=== PATIENT | male | born 1970 | race Caucasian/White ===

== ENCOUNTER 2017-08-24 16:54 | Emergency (ER) | payer MEDICAID, OTHER ==
[~2017-08-24] VITALS: Ht 180.3 cm; Wt 87.7 kg
[~2017-08-24 16:54] MED LIST: HYDR-3237 PO; OMEP20CA9 PO; SULF1TAB24 PO
[2017-08-24 17:03] VITALS: BP 127/85
[2017-08-24] MEDS ORDERED: HYDROcodone/APAP 5/325 TABLET ONE (17:41)
[2017-08-24] MEDS ORDERED: BUPIVACAINE 0.25% ONE (17:41)
[2017-08-24] MEDS ORDERED: BUPIVACAINE 0.25% INFIL ONE (18:00)
[2017-08-24] MEDS ORDERED: HYDROcodone/APAP 5/325 TABLET PO ONE (18:00)
[2017-08-24] MEDS ORDERED: LIDOCAINE 1%-EPI 1:100K, 20ML SQ ONE (18:00)
[2017-08-24] MEDS ORDERED: BACITRACIN ZINC OINT 500U/GM, 0.9 GM ONE (19:28)
[2017-08-24] MEDS ORDERED: CLINDAMYCIN 300 MG CAPSULE PO ONE (19:30)
[2017-08-24] MEDS ORDERED: CLINDAMYCIN 300 MG CAPSULE ONE (19:50)
== END 2017-08-24 20:26 | disposition home or self-care (01) ==
LOC: ED 19:50
DX: L03.012 Cellulitis of left finger (principal); L02.512 Cutaneous abscess of left hand; F17.200 Nicotine dependence, unspecified, uncomplicated; Z86.14 Personal history of Methicillin resistant Staphylococcus aureus infection
CPT/HCPCS: 26010; 99284

== ENCOUNTER 2021-03-03 22:49 | Emergency (ER) | payer MEDICAID, OTHER ==
[~2021-03-03] VITALS: Ht 180.3 cm; Wt 93.6 kg
[~2021-03-03 22:49] MED LIST changes: +SULF-23 PO; -SULF1TAB24 PO
[2021-03-04] MEDS ORDERED: ONDANSETRON 2MG/ML, 2ML ONE (00:16)
[2021-03-04] MEDS ORDERED: MORPHINE SULFATE 4 MG/ML, 1ML ONE (00:16)
[2021-03-04] MEDS ORDERED: MORPHINE SULFATE 4 MG/ML, 1ML IVPush ONE (00:30)
[2021-03-04] MEDS ORDERED: SODIUM CHLORIDE FLUSH 10ML SYR IVF ONE (00:30)
[2021-03-04] MEDS ORDERED: ONDANSETRON 2MG/ML, 2ML IVPush ONE (00:30)
[2021-03-04 01:08] LABS: HCT (SEDRATE) 38.1 % (39.2-51.8)
[2021-03-04 01:09] LABS: BASOPHILS % (AUTO) 1 % (0-1); EOSINOPHILS % (AUTO) 6 % (1-7); LYMPHOCYTES % (AUTO) 24 % (22-44); MEAN CORPUSCULAR HEMOGLOBIN 28.6 pg (27.5-34.5); MEAN CORPUSCULAR HGB CONC 33.5 g/dL (33.2-36.2); MEAN PLATELET VOLUME 8.8 fL (7.4-10.4); MONOCYTES % (AUTO) 10 % (2-9); NEUTROPHILS % (AUTO) 60 % (42-75); PLATELET COUNT 185 x10^3/uL (130-400); RED BLOOD COUNT 4.49 x10^6/uL (4.38-5.82); RED CELL DISTRIBUTION WIDTH 15.1 % (9.4-14.8)
[2021-03-04 01:13] LABS: ALBUMIN 2.7 g/dL (3.4-5.0); ANION GAP 3 mmol/L (5-15); CALCIUM 8.3 mg/dL (8.5-10.1); CHLORIDE 107 mmol/L (98-107)
[2021-03-04] MEDS ORDERED: KETOROLAC 30 MG/1 ML ONE (02:16)
[2021-03-04 02:30] VITALS: BP 118/74
[2021-03-04] MEDS ORDERED: KETOROLAC 30 MG/1 ML IVPush ONE (02:30)
== END 2021-03-04 02:53 | disposition home or self-care (01) ==
LOC: ED 03-04 02:42
DX: L03.116 Cellulitis of left lower limb (principal); F17.210 Nicotine dependence, cigarettes, uncomplicated; F12.10 Cannabis abuse, uncomplicated
CPT/HCPCS: 36415; 73610; 80048; 82040; 84550; 85025; 85651; 86140; 96374; 96375; 99284; J2270; J2405